=== PATIENT | female | born 1980 | race American Indian/Alaskan Native ===

== ENCOUNTER 2020-10-07 16:03 | Emergency (ER) | payer OTHER ==
[2020-10-07 16:21] VITALS: BP 190/107
[2020-10-07] MEDS ORDERED: ALBUTEROL 2.5 MG/3 ML NEBU IH ONE (16:49)
[2020-10-07] MEDS ORDERED: predniSONE 20 MG TAB PO ONE ×2 (16:49→19:30)
[2020-10-07] MEDS ORDERED: IPRATROPIUM 0.02% NEBU 2.5 ML IH ONE (16:49)
--- NOTE | 2020-10-07 16:52 | Event Note ---
ED Screening Note Date of service: 10/07/20 Time: 16:00 ED Screening Note: Patient is a 40-year-old -English female with a history of chronic asthma with occasional exacerbations who presents to the ED with complaint of acute onset persistent shortness of breath, chest tightness, wheezing, nasal and sinus congestion and persistent dry cough for the last 3 days despite using her albuterol inhaler at home. Patient states that she is visiting [place] from [place], and that she forgot to bring her albuterol nebulizer with her but just carried albuterol inhaler which has not helped out since the onset of the symptoms. Patient denies dizziness, syncope, fever, chills, sore throat, chest pain, abdominal pain, nausea and vomiting or headache. This initial assessment/diagnostic orders/clinical plan/treatment(s) is/are subject to change based on patients health status, clinical progression and re- assessment by fellow clinical providers in the ED. Further treatment and workup at subsequent clinical providers discretion. Patient/guardian urged not to elope from the ED as their condition may be serious if not clinically assessed and managed. Initial orders include: Chest x-ray, DuoNeb, oral prednisone
--- NOTE | 2020-10-07 18:25 | XRay Report ---
XR chest 1V ap INDICATION / CLINICAL INFORMATION: dyspnea. COMPARISON: None available. FINDINGS: SUPPORT DEVICES: None. HEART /PULMONARY VASCULATURE: No significant abnormality. LUNGS / PLEURA: No significant pulmonary or pleural abnormality. No pneumothorax. ADDITIONAL FINDINGS: No significant additional findings. IMPRESSION: 1. No acute findings. Signer Name: Klaus Oliva MD Signed: 10/07/2020 6:20 PM Workstation Name: [id number]
--- NOTE | 2020-10-07 19:16 | Emergency Department Report ---
ED Shortness of Breath HPI - General Chief Complaint: Adult Asthma Stated Complaint: ASTHMA Source: patient Mode of arrival: Ambulatory Limitations: No Limitations - History of Present Illness Initial Comments: Patient is a 40-year-old -Marshallese female with a history of chronic asthma with occasional exacerbations who presents to the ED with complaint of acute onset persistent shortness of breath, chest tightness, wheezing, nasal and sinus congestion and persistent dry cough for the last 3 days despite using her albuterol inhaler at home. Patient states that she is visiting [place] from [place], and that she forgot to bring her albuterol nebulizer with her but just carried albuterol inhaler which has not helped out since the onset of the symptoms. Patient denies dizziness, syncope, fever, chills, sore throat, chest pain, abdominal pain, nausea and vomiting or headache. MD Complaint: shortness of breath, cough, "asthma attack" -: Sudden, days(s) (3) Severity: severe Pain Scale: 7 Quality: other (Chest tightness) Consistency: constant Improves With: nothing Worsens With: nothing Known History Of: asthma Context: allergen exposure, other (Chest tightness) Associated Symptoms: other (Chest tightness) Treatments Prior to Arrival: bronchodilator - Related Data Home Oxygen Therapy: No Previous Rx's Medication Instructions Recorded Last Taken Type Benzonatate [Tessalon Perles] 100 mg PO Q8HR #30 capsule 10/07/20 Unknown Rx Cetirizine HCl [Zyrtec 10mg tab] 10 mg PO DAILY #30 tablet 10/07/20 Unknown Rx Prednisone [predniSONE 10 mg 10 mg PO .TAPER #21 tab.ds.pk 10/07/20 Unknown Rx (6-Day Pack, 21 Tabs)] Allergies Allergy/AdvReac Type Severity Reaction Status Date / Time No Known Allergies Allergy Unverified 10/07/20 16:22 ED Review of Systems ROS: Stated complaint: ASTHMA Other details as noted in HPI Constitutional: denies: chills, fever Eyes: denies: eye pain, eye discharge, vision change ENT: congestion. denies: ear pain, throat pain Respiratory: cough, shortness of breath, wheezing Cardiovascular: denies: chest pain, palpitations Endocrine: no symptoms reported Gastrointestinal: denies: abdominal pain, nausea, diarrhea Genitourinary: denies: urgency, dysuria, discharge Musculoskeletal: denies: back pain, joint swelling, arthralgia Skin: denies: rash, lesions Neurological: denies: headache, weakness, paresthesias Psychiatric: denies: anxiety, depression Hematological/Lymphatic: denies: easy bleeding, easy bruising ED Past Medical Hx - Past Medical History Hx Hypertension: Yes Hx Asthma: Yes - Surgical History Past Surgical History?: No - Social History Smoking Status: Never Smoker - Medications Home Medications: Home Medications Medication Instructions Recorded Confirmed Last Taken Type Benzonatate [Tessalon Perles] 100 mg PO Q8HR #30 capsule 10/07/20 Unknown Rx Cetirizine HCl [Zyrtec 10mg tab] 10 mg PO DAILY #30 tablet 10/07/20 Unknown Rx Prednisone [predniSONE 10 mg 10 mg PO .TAPER #21 tab.ds.pk 10/07/20 Unknown Rx (6-Day Pack, 21 Tabs)] ED Physical Exam - General Limitations: No Limitations General appearance: alert, in no apparent distress - Head Head exam: Present: atraumatic, normocephalic, normal inspection - Eye Eye exam: Present: normal appearance, PERRL, EOMI Pupils: Present: normal accommodation - ENT ENT exam: Present: normal exam, normal orophraynx, mucous membranes moist, TM's normal bilaterally, normal external ear exam, other (Grossly congested nasal passages) - Neck Neck exam: Present: normal inspection, full ROM - Respiratory Respiratory exam: Present: wheezes (Diffuse coarse wheezes throughout). Absent: respiratory distress, rales, rhonchi, chest wall tenderness, accessory muscle use, decreased breath sounds, prolonged expiratory - Cardiovascular Cardiovascular Exam: Present: normal rhythm, tachycardia, normal heart sounds. Absent: systolic murmur, diastolic murmur, rubs, gallop - GI/Abdominal GI/Abdominal exam: Present: soft, normal bowel sounds. Absent: tenderness, gu arding, rebound - Extremities Exam Extremities exam: Present: normal inspection, full ROM, normal capillary refill - Back Exam Back exam: Present: normal inspection, full ROM. Absent: CVA tenderness (L), muscle spasm, paraspinal tenderness, vertebral tenderness - Neurological Exam Neurological exam: Present: alert, oriented X3, CN II-XII intact, normal gait, reflexes normal - Psychiatric Psychiatric exam: Present: normal affect, normal mood, anxious - Skin Skin exam: Present: warm, dry, intact, normal color. Absent: rash ED Course Vital Signs 10/07/20 10/07/20 16:13 17:23 Temperature 98.3 F Pulse Rate 100 H Pulse Rate [ 93 H Anterior Bilateral Throughout] Respiratory 22 Rate Respiratory 18 Rate [Anterior Bilateral Throughout] Blood Pressure 190/107 O2 Sat by Pulse 100 Oximetry ED Medical Decision Making - Radiology Data Radiology results: report reviewed, image reviewed [facility] [address] [place] [address] XRay Report Signed Patient: MINDI WINTER MR#: [id number] 2 : 1980 Acct:[id number] Age/Sex: 40 / F ADM Date: 10/07/20 Loc: ED Attending Dr: Ordering Physician: NATALYA LINK Date of Service: 10/07/20 Procedure(s): XR chest 1V ap Accession Number(s): [id number] cc: NATALYA LINK Fluoro Time In Minutes: XR chest 1V ap INDICATION / CLINICAL INFORMATION: dyspnea. COMPARISON: None available. FINDINGS: SUPPORT DEVICES: None. HEART /PULMONARY VASCULATURE: No significant abnormality. LUNGS / PLEURA: No significant pulmonary or pleural abnormality. No pneumothorax. ADDITIONAL FINDINGS: No significant additional findings. IMPRESSION: 1. No acute findings. Signer Name: Jagdish Oliva MD Signed: 10/07/2020 6:20 PM Workstation Name: [id number] Transcribed By: SACHI Dictated By: JAGDISH OLIVA MD Electronically Authenticated By: JAGDISH OLIVA MD Signed Date/Time: 10/07/201819 DD/ 19 TD/TT: - Medical Decision Making This is a 40-year-old -Marshallese female with a history of chronic asthma with occasional exacerbations who presents to the ED with complaint of acute onset persistent shortness of breath, chest tightness, wheezing, nasal and sinus congestion and persistent dry cough for the last 3 days despite using her albuterol inhaler at home. Patient states that she is visiting [place] from [place], and that she forgot to bring her albuterol nebulizer with her but just carried albuterol inhaler which has not helped out since the onset of the symptoms. In the ED, patient is alert and oriented x3 and is not in any distress. Patient was treated in the ED with DuoNeb, and also received oral prednisone in the ED. Chest x-ray shows no acute cardiopulmonary abnormalities or pneumonitis. On reevaluation, patient wheezing resolved, shortness of breath also resolved and patient's oxygen saturation was 99% in room air. Patient was therefore discharged home on medications and advised to follow-up with her primary care physician in 5 to 7 days for reevaluation patient was also advised return to the ED immediately if symptoms get worse. - Differential Diagnosis Asthma; pneumonia; bronchitis; URI; seasonal allergies Critical care attestation.: If time is entered above; I have spent that time in minutes in the direct care of this critically ill patient, excluding procedure time. ED Disposition Clinical Impression: Shortness of breath Acute asthma exacerbation Qualifiers: Asthma severity: unspecified severity Asthma persistence: unspecified Qualified Code(s): J45.901 - Unspecified asthma with (acute) exacerbation Disposition: DC- TO HOME OR SELFCARE Is pt being admited?: No Does the pt Need Aspirin: No Condition: Stable Instructions: Shortness of Breath, Adult, [id number], Cough, Adult, [id number], Asthma, Adult, [id number] Additional Instructions: Chest x-ray shows no acute cardiopulmonary abnormalities or pneumonitis. Th erefore take medication with food, drink plenty of fluids and follow-up with your primary care physician in 3 to 5 days for reevaluation. Return to the ED immediately if symptoms get worse. Prescriptions: Prednisone [predniSONE 10 mg (6-Day Pack, 21 Tabs)] 10 mg PO .TAPER #21 tab.ds.pk Benzonatate [Tessalon Perles] 100 mg PO Q8HR #30 capsule Cetirizine HCl [Zyrtec 10mg tab] 10 mg PO DAILY #30 tablet Referrals: [facility] [Provider Group] - 3-5 Days Time of Disposition: 19:14 Print Language: TOGOLESE
== END 2020-10-07 19:40 | disposition home or self-care (01) ==
LOC: ED 16:03
DX: J45.901 Unspecified asthma with (acute) exacerbation (principal); R06.02 Shortness of breath; I10 Essential (primary) hypertension; Z79.899 Other long term (current) drug therapy
CPT/HCPCS: 71045; 94640; 99283; J7512; 94644